=== PATIENT | male | born 1990 | race Caucasian/White ===

== ENCOUNTER 2021-04-19 13:02 | Emergency (ER) | payer SELFPAY ==
[~2021-04-19] VITALS: Ht 162.6 cm; Wt 68.0 kg
[2021-04-19 13:15] VITALS: BP_SYST 127
--- NOTE | 2021-04-19 13:15 | NUR ---
Pt to [facility] for evaluation.
--- NOTE | 2021-04-19 13:30 | NUR ---
Pt AAO and ambulatory BIB [employer] for medical clearance. Pt denies having any complaint currently or prior medical history.
--- NOTE | 2021-04-19 13:40 | NUR ---
Dr. Serra at bedside to assess.
[2021-04-19 14:00] VITALS: BP_SYST 127
--- NOTE | 2021-04-19 14:00 | NUR ---
Patient given written and verbal discharge instructions and verbalizes understanding. Dr. Maryse REINOSO MD discussed with patient the results and treatment provided. Patient in stable condition. ID arm band removed. Patient educated on pain management and to follow up with PMD. Pain Scale 0/10. Opportunity for questions provided and answered.
== END 2021-04-19 14:00 | disposition home or self-care (01) ==
LOC: SED 13:02
DX: S00.83XA Contusion of other part of head, initial encounter (principal); F20.9 Schizophrenia, unspecified; Y04.0XXA Assault by unarmed brawl or fight, initial encounter; Y93.89 Activity, other specified; Y92.89 Other specified places as the place of occurrence of the external cause; Y99.8 Other external cause status
CPT/HCPCS: 99283